=== PATIENT | female | born 1985 | race Caucasian/White ===

== ENCOUNTER 2016-11-19 11:18 | Emergency (ER) | payer MEDICAID ==
[~2016-11-19] VITALS: Ht 180.3 cm; Wt 106.4 kg
[2016-11-19 11:19] VITALS: BP 119/74
== END 2016-11-19 12:47 | disposition home or self-care (01) ==
LOC: ED 12:15
DX: H10.023 Other mucopurulent conjunctivitis, bilateral (principal)
CPT/HCPCS: 99283

== ENCOUNTER 2020-03-04 13:02 | Emergency (ER) | payer MEDICAID ==
[~2020-03-04] VITALS: Ht 180.3 cm; Wt 137.9 kg
[2020-03-04 13:05] VITALS: BP 133/59
--- NOTE | 2020-03-04 13:53 | NUR ---
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 SHE HAD A PIMPLE ON HER CHIN, AFTER WORKING ALL NIGHT IT HAS BECOME VERY LARGE AND INFLAMED. MOST OF CHIN SWOLLEN, RED, TENDER TO THE TOUCH, AND WEEPING. PT DENIES ANY OTHER NEEDS OR CONCERNS. CALL LIGHT IN REACH.
[2020-03-04] MEDS ORDERED: LIDOCAINE 1%-EPI 1:100K, 20ML ONE (14:28)
[2020-03-04] MEDS ORDERED: L.E.T SOLUTION TP ONE ×2 (14:28→15:00)
[2020-03-04] MEDS ORDERED: LIDOCAINE 1%-EPI 1:100K, 20ML SQ ONE (15:00)
[2020-03-04] MEDS ORDERED: CLINDAMYCIN 150 MG/ML, 6ML IM ONE (15:00)
[2020-03-04] MEDS ORDERED: CLINDAMYCIN 300 MG CAPSULE ONE (15:47)
[2020-03-04] MEDS ORDERED: CLINDAMYCIN 150 MG/ML, 6ML ONE (15:50)
== END 2020-03-04 16:05 | disposition home or self-care (01) ==
LOC: ED 14:23
DX: L02.01 Cutaneous abscess of face (principal)
CPT/HCPCS: 10060; 96372; 99284; S0077

== ENCOUNTER 2020-03-06 14:13 | Emergency (ER) | payer MEDICAID ==
[~2020-03-06] VITALS: Ht 180.3 cm; Wt 137.5 kg
[2020-03-06 14:16] VITALS: BP 141/81
--- NOTE | 2020-03-06 14:35 | NUR ---
PATIENT WALKED BACK FROM TRIAGE FOR CHIN LACERATION RECHECK. PATIENT WAS HERE 2 DAYS AGO FOR ABSCESS ON CHIN AND UNDERWENT AND I&D. SHE WAS TOLD TO COME BACK AND HAVE PACKING REMOVED. ERMD AT BEDSIDE FOR EVALUATION.
[2020-03-06] MEDS ORDERED: NEOSPORIN OINT. PKT 1 PACKET ONE (14:58)
--- NOTE | 2020-03-06 15:47 | NUR ---
Patient given discharge instructions and prescriptions and they have confirmed that they understand the instructions. Patient educated on wound care by provider and acknowledges understanding. Patient ambulatory with steady gait to discharge desk.
== END 2020-03-06 15:48 | disposition home or self-care (01) ==
LOC: ED 15:11
DX: L02.01 Cutaneous abscess of face (principal); Z87.891 Personal history of nicotine dependence
CPT/HCPCS: 99283